=== PATIENT | male | born 1995 | race Caucasian/White ===

== ENCOUNTER 2021-10-28 01:17 | Emergency (ER) | payer BC, OTHER ==
[2021-10-28] MEDS ORDERED: Ketorolac Tromethamine 30 MG/ML VIAL ONE (03:15)
== END 2021-10-28 04:17 | disposition home or self-care (01) ==
LOC: ERS 01:17
DX: M54.42 Lumbago with sciatica, left side (principal)
CPT/HCPCS: 96372; 99283; J1885